=== PATIENT | male | born 1940 | race Caucasian/White ===

== ENCOUNTER 2020-05-29 18:15 | Inpatient (IN) | payer MEDICARE, BC ==
[2020-05-29] MEDS: Tamsulosin HCl 0.4 MG CAP PO SCH (21:01)
[2020-05-29] MEDS: Melatonin 3 MG TAB PO PRN (21:02)
[2020-05-30 00:04] LABS: Bilirubin Negative (Negative); Blood, Urine Large (Negative); Clarity Cloudy (Clear); Glucose, Urine (Dipstick) Negative (Negative); Ketone, Urine Negative (Negative); Leukocyte Moderate (Negative); Nitrite Negative (Negative); Protein, Urine (Dipstick) 100 mg/dL (Neg-Trace); Specific Gravity, Urine 1.025 (1.005-1.030); Urobilinogen > or = 8.0 mg/dL (Less than 2); pH, Urine 6.5 (5.0-9.0)
[2020-05-30 00:09] LABS: RBC/HPF Greater than 50 HPF (0-3)
[2020-05-30 00:10] LABS: Bacteria/HPF 1+ HPF (None Seen)
[2020-05-30] MEDS ORDERED: FLU VACC QS2020-21(65YR UP)/PF 240 MCG/0.7 ML SYRINGE IM ONE (09:00)
[2020-05-30] MEDS: Amlodipine 5 MG TAB PO SCH (09:18)
[2020-05-30] MEDS: Acetaminophen 325 MG TAB PO PRN (09:19)
[2020-05-30] MEDS: Tamsulosin HCl 0.4 MG CAP PO SCH (20:37)
[2020-05-31] MEDS: Amlodipine 5 MG TAB PO SCH (09:11)
[2020-05-31] MEDS: Melatonin 3 MG TAB PO PRN (20:21)
[2020-05-31] MEDS: Acetaminophen 325 MG TAB PO PRN (20:22)
[2020-05-31] MEDS: Tamsulosin HCl 0.4 MG CAP PO SCH (20:23)
[2020-06-01] MEDS: Amlodipine 5 MG TAB PO SCH (08:55)
[2020-06-01] MEDS: Melatonin 3 MG TAB PO PRN (20:38)
[2020-06-01] MEDS: Tamsulosin HCl 0.4 MG CAP PO SCH (20:38)
[2020-06-02] MEDS: Amlodipine 5 MG TAB PO SCH (08:15)
[2020-06-02] MEDS: Melatonin 3 MG TAB PO PRN (20:22)
[2020-06-02] MEDS: Tamsulosin HCl 0.4 MG CAP PO SCH (20:22)
[2020-06-03] MEDS: Polyethylene Glycol 3350 17 GM Packet PER TUBE SCH (08:07)
[2020-06-03] MEDS: Amlodipine 5 MG TAB PO SCH (08:09)
[2020-06-03] MEDS: ALPRAZolam 0.25 MG TAB PO PRN (08:30)
[2020-06-03] MEDS: Acetaminophen 325 MG TAB PO PRN ×2 (14:26→20:40)
[2020-06-03] MEDS: Melatonin 3 MG TAB PO PRN (20:40)
[2020-06-03] MEDS: Tamsulosin HCl 0.4 MG CAP PO SCH (20:41)
[2020-06-04] MEDS: ALPRAZolam 0.25 MG TAB PO PRN (09:32)
[2020-06-04] MEDS: Polyethylene Glycol 3350 17 GM Packet PER TUBE SCH (09:32)
[2020-06-04] MEDS: Amlodipine 5 MG TAB PO SCH (09:33)
[2020-06-04] MEDS: Tamsulosin HCl 0.4 MG CAP PO SCH (19:59)
[2020-06-05] MEDS: Polyethylene Glycol 3350 17 GM Packet PER TUBE SCH (08:52)
[2020-06-05] MEDS: ALPRAZolam 0.25 MG TAB PO PRN (08:52)
[2020-06-05] MEDS: Amlodipine 5 MG TAB PO SCH (08:52)
[2020-06-05] MEDS: Tamsulosin HCl 0.4 MG CAP PO SCH (20:08)
[2020-06-05] MEDS: Melatonin 3 MG TAB PO PRN (21:07)
[2020-06-06] MEDS: ALPRAZolam 0.25 MG TAB PO PRN ×2 (08:10→19:26)
[2020-06-06] MEDS: Polyethylene Glycol 3350 17 GM Packet PER TUBE SCH (08:10)
[2020-06-06] MEDS: Amlodipine 5 MG TAB PO SCH (08:11)
[2020-06-06] MEDS: Docusate 100 MG CAP PO PRN (08:11)
[2020-06-06] MEDS: Melatonin 3 MG TAB PO PRN (20:02)
[2020-06-06] MEDS: Tamsulosin HCl 0.4 MG CAP PO SCH (20:04)
[2020-06-07] MEDS: Amlodipine 5 MG TAB PO SCH (08:37)
[2020-06-07] MEDS: Polyethylene Glycol 3350 17 GM Packet PER TUBE SCH (08:41)
[2020-06-07] MEDS: Docusate 100 MG CAP PO PRN (12:24)
[2020-06-07] MEDS: Melatonin 3 MG TAB PO PRN (20:10)
[2020-06-07] MEDS: Tamsulosin HCl 0.4 MG CAP PO SCH (20:10)
[2020-06-08] MEDS: Polyethylene Glycol 3350 17 GM Packet PER TUBE SCH (08:53)
[2020-06-08] MEDS: Amlodipine 5 MG TAB PO SCH (08:53)
[2020-06-08] MEDS: ALPRAZolam 0.25 MG TAB PO PRN (19:32)
[2020-06-08] MEDS: Melatonin 3 MG TAB PO PRN (19:59)
[2020-06-08] MEDS: Tamsulosin HCl 0.4 MG CAP PO SCH (19:59)
[2020-06-09] MEDS: Polyethylene Glycol 3350 17 GM Packet PER TUBE SCH (08:49)
[2020-06-09] MEDS: Amlodipine 5 MG TAB PO SCH (08:49)
[2020-06-09] MEDS: Tamsulosin HCl 0.4 MG CAP PO SCH (21:36)
[2020-06-09] MEDS: Melatonin 3 MG TAB PO PRN (21:37)
[2020-06-10] MEDS: Polyethylene Glycol 3350 17 GM Packet PER TUBE SCH (09:01)
[2020-06-10] MEDS: Amlodipine 5 MG TAB PO SCH (09:02)
[2020-06-10] MEDS: ALPRAZolam 0.25 MG TAB PO PRN (20:27)
[2020-06-10] MEDS: Melatonin 3 MG TAB PO PRN (20:27)
[2020-06-10] MEDS: Tamsulosin HCl 0.4 MG CAP PO SCH (20:27)
[2020-06-11] MEDS: Amlodipine 5 MG TAB PO SCH (08:30)
[2020-06-11] MEDS: Polyethylene Glycol 3350 17 GM Packet PER TUBE SCH (08:31)
[2020-06-11] MEDS: ALPRAZolam 0.25 MG TAB PO PRN (20:46)
[2020-06-11] MEDS: Melatonin 3 MG TAB PO PRN (20:46)
[2020-06-11] MEDS: Tamsulosin HCl 0.4 MG CAP PO SCH (20:46)
[2020-06-12] MEDS: Amlodipine 5 MG TAB PO SCH (08:46)
[2020-06-12] MEDS: Polyethylene Glycol 3350 17 GM Packet PER TUBE SCH (08:46)
[2020-06-12] MEDS: Melatonin 3 MG TAB PO PRN (20:24)
[2020-06-12] MEDS: Tamsulosin HCl 0.4 MG CAP PO SCH (20:24)
[2020-06-12] MEDS: ALPRAZolam 0.25 MG TAB PO PRN (20:25)
[2020-06-13] MEDS: Amlodipine 5 MG TAB PO SCH (08:39)
[2020-06-13] MEDS: Polyethylene Glycol 3350 17 GM Packet PER TUBE SCH (08:40)
[2020-06-13] MEDS: Docusate 100 MG CAP PO PRN (12:14)
[2020-06-13] MEDS ORDERED: Polyethylene Glycol 3350 17 GM Packet PER TUBE PRN (18:06)
[2020-06-13] MEDS: Acetaminophen 325 MG TAB PO PRN (19:27)
[2020-06-13] MEDS: ALPRAZolam 0.25 MG TAB PO PRN (19:27)
[2020-06-13] MEDS: Melatonin 3 MG TAB PO PRN ×2 (19:28→20:09)
[2020-06-13] MEDS: Tamsulosin HCl 0.4 MG CAP PO SCH (20:09)
[2020-06-14] MEDS: Docusate 100 MG CAP PO PRN (07:56)
[2020-06-14] MEDS: Amlodipine 5 MG TAB PO SCH (07:56)
[2020-06-14] MEDS ORDERED: Polyethylene Glycol 3350 17 GM Packet PO PRN ×2 (12:15→12:17)
[2020-06-14] MEDS: Polyethylene Glycol 3350 17 GM Packet PO SCH (21:01)
[2020-06-14] MEDS: Tamsulosin HCl 0.4 MG CAP PO SCH (21:02)
[2020-06-14] MEDS: Melatonin 3 MG TAB PO PRN (21:02)
[2020-06-15] MEDS: Amlodipine 5 MG TAB PO SCH (08:25)
[2020-06-15] MEDS ORDERED: Polyethylene Glycol 3350 17 GM Packet PER TUBE SCH (09:00)
[2020-06-15] MEDS: ALPRAZolam 0.25 MG TAB PO PRN ×2 (10:10→20:27)
[2020-06-15] MEDS: Tamsulosin HCl 0.4 MG CAP PO SCH (20:27)
[2020-06-15] MEDS: Melatonin 3 MG TAB PO PRN (20:27)
[2020-06-15] MEDS: Polyethylene Glycol 3350 17 GM Packet PO SCH (20:28)
[2020-06-16] MEDS: Amlodipine 5 MG TAB PO SCH (07:36)
[2020-06-16] MEDS: Melatonin 3 MG TAB PO PRN (19:59)
[2020-06-16] MEDS: ALPRAZolam 0.25 MG TAB PO PRN (19:59)
[2020-06-16] MEDS: Docusate 100 MG CAP PO PRN (19:59)
[2020-06-16] MEDS: Polyethylene Glycol 3350 17 GM Packet PO SCH (20:00)
[2020-06-16] MEDS: Tamsulosin HCl 0.4 MG CAP PO SCH (20:01)
[2020-06-17] MEDS: Docusate 100 MG CAP PO PRN (08:13)
[2020-06-17] MEDS: Amlodipine 5 MG TAB PO SCH (08:13)
[2020-06-17] MEDS: Polyethylene Glycol 3350 17 GM Packet PO SCH (20:07)
[2020-06-17] MEDS: Tamsulosin HCl 0.4 MG CAP PO SCH (20:07)
[2020-06-17] MEDS: ALPRAZolam 0.25 MG TAB PO PRN (20:08)
[2020-06-17] MEDS: Melatonin 3 MG TAB PO PRN (20:08)
[2020-06-18] MEDS: Amlodipine 5 MG TAB PO SCH (08:44)
[2020-06-18] MEDS: ALPRAZolam 0.25 MG TAB PO PRN ×2 (08:45→20:04)
[2020-06-18] MEDS: Polyethylene Glycol 3350 17 GM Packet PO SCH (20:02)
[2020-06-18] MEDS: Melatonin 3 MG TAB PO PRN (20:03)
[2020-06-18] MEDS: Tamsulosin HCl 0.4 MG CAP PO SCH (20:03)
[2020-06-19] MEDS: Amlodipine 5 MG TAB PO SCH (09:01)
[2020-06-19] MEDS: ALPRAZolam 0.25 MG TAB PO PRN (09:02)
[2020-06-19] MEDS: Polyethylene Glycol 3350 17 GM Packet PO SCH (21:11)
[2020-06-19] MEDS: Tamsulosin HCl 0.4 MG CAP PO SCH (21:12)
[2020-06-19] MEDS: Docusate 100 MG CAP PO PRN (21:13)
[2020-06-19] MEDS: Melatonin 3 MG TAB PO PRN (21:17)
[2020-06-20] MEDS: Amlodipine 5 MG TAB PO SCH (08:40)
[2020-06-20] MEDS: ALPRAZolam 0.25 MG TAB PO PRN (08:41)
[2020-06-20 16:15] VITALS: BMI 27.1
[2020-06-20] MEDS: Polyethylene Glycol 3350 17 GM Packet PO SCH (19:58)
[2020-06-20] MEDS: Tamsulosin HCl 0.4 MG CAP PO SCH (19:59)
[2020-06-21] MEDS: Amlodipine 5 MG TAB PO SCH (08:06)
[2020-06-21] MEDS: ALPRAZolam 0.25 MG TAB PO PRN (10:48)
[2020-06-21] MEDS: Polyethylene Glycol 3350 17 GM Packet PO SCH (21:19)
[2020-06-21] MEDS: Tamsulosin HCl 0.4 MG CAP PO SCH (21:19)
[2020-06-22 08:19] VITALS: BP 135/82; TEMP 98
[2020-06-22] MEDS: Amlodipine 5 MG TAB PO SCH (08:36)
== END 2020-06-22 10:30 | DRG 948 ==
LOC: MADMS 20:00
PROVIDERS: ADMIT Family Medicine; ATTEND Family Medicine
DX: R53.1 Weakness (principal); N39.0 Urinary tract infection, site not specified; F02.81 Dementia in other diseases classified elsewhere, unspecified severity, with behavioral disturbance; R53.81 Other malaise; I10 Essential (primary) hypertension; N40.0 Benign prostatic hyperplasia without lower urinary tract symptoms; N40.1 Benign prostatic hyperplasia with lower urinary tract symptoms; R33.8 Other retention of urine; R31.0 Gross hematuria; K59.01 Slow transit constipation; G30.9 Alzheimer's disease, unspecified; R26.9 Unspecified abnormalities of gait and mobility; K59.00 Constipation, unspecified; B96.4 Proteus (mirabilis) (morganii) as the cause of diseases classified elsewhere; R00.1 Bradycardia, unspecified; Z91.81 History of falling; Z90.49 Acquired absence of other specified parts of digestive tract; Z97.8 Presence of other specified devices
CPT/HCPCS: 81001; 87077; 87086; 87186; 90471; 90662; G0008